=== PATIENT | female | born 1975 | race Caucasian/White ===

== ENCOUNTER → 2018-12-24 | Outpatient (CLI) | payer BC, SELFPAY ==
[2018-12-24 18:02] LABS: ALB/GLOB Ratio 0.9 RATIO (0.9-2.4); AST(SGOT) 14 U/L (15-37); Alanine Aminotransfer ALT/SGPT 21 U/L (13-56); Albumin, Serum 3.6 g/dL (3.2-5.0); Alkaline Phosphatase 55 U/L (45-117); Anion Gap 7 (5-15); BUN 13 mg/dL (7-18); BUN/Creat Ratio 17.4 RATIO (10-20); CRP < 2.90 mg/L (0.0-3.0); Calcium,Total 8.5 mg/dL (8.5-10.1); Chloride 106 mmol/L (98-107); Creatinine, Serum 0.75 mg/dL (0.55-1.02); EST Glomerular Filtration Rate 90 mL/min (>60); Est Glom Filt Rate - Afr Amer 108 mL/min (>60); Glucose 88 mg/dL (74-106); Hemoglobin 11.7 g/dl (12.0-15.0); Mean Corp Hgb Conc 32.5 g/gl (32-36); Mean Corpuscular Hgb 30.1 pg (27.0-32.0); Mean Corpuscular Volume 92.5 fL (81-99); Mean Platelet Vol. 9.5 fl (6.2-12.0); Platelet Count 287 K/mm3 (150-450); Potassium 3.6 mmol/L (3.5-5.1); Protein, Total 7.6 g/dL (6.4-8.2); RBC Distribution Width CV 12.9 % (11.6-14.6); RBC Distribution Width SD 43.3 fl (35.1-43.9); Red Blood Count 3.89 M/mm3 (4.2-5.4); Sodium Level 141 mmol/L (136-145); White Blood Count 9.2 K/mm3 (4.4-11.0)
[2018-12-24 18:03] LABS: Scan Indicated on CBC? Y/N NO
== END | disposition home or self-care (01) ==
PROVIDERS: Family Provider Family Medicine; PCP Family Medicine; Referring Provider Internal Medicine Gastroenterology; Visit Provider Internal Medicine Gastroenterology
DX: K50.90 Crohn's disease, unspecified, without complications (principal)
CPT/HCPCS: 36415; 80053; 85027; 86140

== ENCOUNTER → 2019-02-01 | Outpatient (CLI) | payer BC, SELFPAY ==
--- NOTE | 2019-02-01 13:22 | CT_ITS ---
STUDY: CT ABDOMEN AND PELVIS WITH AND WITHOUT CONTRAST REASON FOR EXAM: Female, 44 years old. Hematuria. Painful urination. RADIATION DOSAGE (If Supplied By Facility): CTDIvol = ( 15.84 ) mGy, DLP = ( 2163.53 ) mGycm TECHNIQUE: Transaxial images were obtained from the dome of the diaphragm to the symphysis pubis without oral contrast. 100 IV Isovue 300 was administered. Sagittal and coronal images were reconstructed. Individualized dose optimization techniques were used for this CT. COMPARISON: None. FINDINGS: The visualized lung bases are unremarkable. The visualized portions of the heart are within normal limits. Normal liver. Normal gallbladder and extrahepatic biliary system. Normal spleen. Normal pancreas. Normal bilateral adrenal glands. There are no urinary calculi. There is no hydronephrosis. There are no focal renal lesions. Normal visualized stomach. Normal small intestine. Normal colon. The appendix is visualized and appears normal. Normal abdominal aorta. Normal inferior vena cava. Normal retroperitoneum. The urinary bladder wall appears thickened. Normal abdominal wall. Normal osseous structures. CT/CT Abd/Pelvis W/WO Contrast IMPRESSION: Thickened urinary bladder wall. Clinical correlation is recommended to evaluate for cystitis. No urinary calculi. No hydronephrosis. No focal renal lesions. Electronically Signed: Jatinder Leach, at 18:54 EDT Tel , Service support ,
== END | disposition home or self-care (01) ==
LOC: CT 13:18
PROVIDERS: Family Provider Family Medicine; PCP Family Medicine; Referring Provider Urology; Visit Provider Urology
DX: R31.9 Hematuria, unspecified (principal)
CPT/HCPCS: 74178; Q9967

== ENCOUNTER 2019-02-22 07:48 | Day surgery (SDC) | payer BC, SELFPAY ==
[2019-02-22] VITALS (7 sets, daily range): BP systolic 103–118; BP diastolic 72–89; PULSE 68–84; RESP 14–18; TEMP 36.6–37.1; O2SAT 98–100; BMI 27.9
[2019-02-22 08:12] LABS: Internal QC Validated? YES +Cl - CLEAR BKGD
[2019-02-22 08:16] LABS: Pregnancy, Urine Negative Negative
--- NOTE | 2019-02-22 09:50 | BLA_PTH ---
PATIENT: EMMANUEL UGARTE [place] [facility] [place][id number] AGE/SX: 44/F ROOM: RE02/22/[address]: Dr. Jorje Dudley MD : 1975 BED: DIS: 02/22/2019 SPEC #: [id number] RECD: 02/22/19 12:22 STATUS: BETINA RE[place] #: [id number] ABDULAZIZ: 02/22/19 09:[address]: Jorje Dudley DEPT: SURGICAL PATHOLOGY RECD BY: Guy Quiñonez ENTERED: 02/22/19 12:41 SP TYPE: BLADDER BX OTHR DR: Dr. Andi Restrepo MD Tissues: A - Urinary bladder, NOS B - Urinary bladder, NOS C - Urinary bladder, NOS Procedures: Surgery Specimen Level IV HEADER OPERATION: Cysto, bladder biopsy, fulguration PRE-OP DIAGNOSIS: Cystitis TISSUE SUBMITTED: A - Bladder biopsy #1, B - Bladder biopsy #2, C - Bladder biopsy #3 MICROSCOPIC DIAGNOSIS A. Urinary bladder biopsy #1: Mild chronic cystitis. See comment. B. Urinary bladder biopsy #2: Mild chronic cystitis. See comment. C. Urinary bladder biopsy #3: Chronic cystitis. See comment. AM:britany 02/25/19 COMMENT A. There is vascular ectasia of the lamina propria. Detrusor muscle is not present. Clinical correlation is suggested. B. Detrusor muscle is not present in the biopsy. C. Detrusor muscle is not present in the biopsy. MICROSCOPIC DESCRIPTION Slides are reviewed. GROSS DESCRIPTION A - Received in fixative is one container labeled with the patient's name and designated bladder biopsy #1. The specimen consists of one irregular fragment of light madera soft tissue that measures 0.2 x 0.1 x 0.1 cm. The specimen is totally submitted in one cassette. B - Received in fixative is one container labeled with the patient's name and designated bladder biopsy #2. The specimen consists of one irregular fragment of light madera soft tissue that measures 0.2 x 0.2 x 0.1 cm. The specimen is totally submitted in one cassette. C - Received in fixative is one container labeled with the patient's name and designated bladder biopsy #3. The specimen consists of one irregular fragment of light madera soft tissue that measures 0.2 x 0.2 x 0.1 cm. The specimen is totally submitted in one cassette. / SJ:rg 02/22/19 TC:3 CPT: 37240 x3
[2019-02-22] MEDS: Cefazolin 2 GM in 0.9% Normal Saline 100 ML IV (10:19)
--- NOTE | 2019-02-22 10:23 | DCINST_ITS ---
Discharge Diet: Light diet - advance as tolerated Discharge Activity: May not drive while taking narcotic pain medications., May Shower Call your doctor if your incision/area has: Sudden Increased Bleeding, Foul Smelling Discharge Call your doctor if you observe: Fever of 101 or Higher, Uncontrolled pain Suture Line Care: Avoid Pulling/Pushing, Avoid Pinching/Bending Instructions: Treating?Interstitial Cystitis: Special Therapies and Surgery, What Is Interstitial Cystitis? Allergies/Adverse Reactions: Allergies No Known Allergies Allergy (Verified 02/20/19 08:03) Medications to take at Discharge Budesonide [Budesonide EC] 3 mg PO MOWEFR 02/20/19 Ciprofloxacin [Cipro] 500 mg PO BID #6 tab 02/22/19 Hydrocodone/Acetaminophen [[facility] 5-325 Tablet] 1 ea PO Q4H PRN PRN 7 Days #20 tab 02/22/19 The following prescriptions were given: Ciprofloxacin [Cipro] 500 mg PO BID #6 tab Prescription Printed Hydrocodone/Acetaminophen [[facility] 5-325 Tablet] 1 ea PO Q4H PRN PRN 7 Days #20 tab PRN Reason: Pain Prescription Printed Primary Care Physician: Andi Restrepo MD [Primary Care Provider] - Test Results: Test results from this visit will be discussed in further detail at your follow- up appointment, if applicable. Please Follow Up With: Jorje Dudley MD When: in 2 weeks, please call to make an appointment.
--- NOTE | 2019-02-22 11:02 | OP.PCM_ITS ---
Report of Operation Date of Procedure: 02/22/19 Pre-Operative Diagnosis: Interstitial cystitis Post-Operative Diagnosis: The same Surgery/Procedure Performed:: Cystoscopy, bladder biopsy x3 and fulguration of 3 sites and some other areas of inflammation within the bladder, hydrodistention of the bladder x2, instillation of IC medication cocktail Description of Surgical Findings:: Indication this is a 44-year-old female she has a history of Crohn's and presented to the office with severe bladder symptoms irritation frequent urination pain discomfort. On cystoscopy she is found to have a very red inflamed friable bladder with very friable mucosa. Because of this I recommended we proceed with a cystoscopy bladder biopsy distention of the bladder and instillation of IC cocktail I suspect she has interstitial cystitis a very severe case that is causing her bladder symptoms. Other possibility would be carcinoma in situ but there is no papillary tumors in the bladder it is reddish inflamed bladder lining. We are going to do a biopsy to rule out carcinoma in situ 44-year-old female was taken back to the operating room at the smooth induction of anesthesia she was placed in dorsolithotomy position the urethra and vaginal area were prepped and draped in usual sterile fashion, went into the bladder with a 21 Telugu rigid cystourethroscope immediately could see the very red and bladder wall, the bladder wall had a lot of erythema and inflammation is also extremely friable and she had extremely sensitive bladder as a started to feel the bladder she started lifting off the table and she required significant amount of anesthesia to get her to stop moving on the table as I told her bladder. Photographs were taken of the bladder and just demonstrated red lesions within the bladder did not appear to be papillary lesions not masses but just inflammation of the bladder wall. My suspicion is that she has a severe case of interstitial cystitis but I did 3 biopsies in the bladder one on the right side 1 of the mid side and when the left side these biopsy sites were then cauterized with a Bugbee electrode I then went through and spot cauterized several areas that were quite red in the bladder but that she had quite a very flat friable and inflamed bladder as a bladder Filling and Emptying More Areas of the Bladder Become Friable and Inflamed and Red in It Which Is Not Feasible to Cauterize the Entire bladder. Therefore the main reddish areas in the bladder were cauterized to 3 biopsy sites were cauterized at the end of the case identified the right and left ureteral orifice to make sure these were not injured, we did a hydrodistention then x2 she really did have very poor filling and low anesthetic bladder volumes around 400 cc. Then at the end of the case after doing a hydrodistention of the biopsies I placed an 816 Telugu catheter into the bladder and we instilled in IC cocktail medication is composed of heparin, lidocaine, DMSO, bicarbonate. After the IC cocktail medication was placed in her bladder anesthesia was reversed we left her bladder with bladder 120 cc of the medication she will be asked to hold it as long as possible in the postoperative setting to help with the medications to help soothe her bladder she will be discharged home on Mal on 100 mg 3 times daily also help with her bladder and interstitial cystitis we will see her back in 2 weeks for checkup she also given a few days of antibiotics and some narcotic pain medication to help with the bladder pain. Type of Anesthesia:: General Specimen's removed: bladder biopsy Drains: none - Complications none - Admit VTE Documentation VTE Present on Admission: No VTE Mechan Device Prophylaxis: SCD's
== END 2019-02-22 13:18 | disposition home or self-care (01) ==
LOC: SDC 07:50 → AC 07:51
PROVIDERS: Anesthesiology; Family Provider Family Medicine; PCP Family Medicine; Referring Provider Urology; Visit Provider Urology
PROC: 0TBB8ZX Excision of Bladder, Via Natural or Artificial Opening Endoscopic, Diagnostic (ICD-10-PCS; CPT 51700; principal; 2019-02-22 09:40)
DX: N30.10 Interstitial cystitis (chronic) without hematuria (principal)
CPT/HCPCS: 51700; 52214; 52260; 81025; 88305; J7120; J1212; J2405

== ENCOUNTER → 2019-03-28 | Outpatient (CLI) | payer BC, SELFPAY ==
[2019-02-22 08:13] VITALS: BMI 27.9
== END | disposition home or self-care (01) ==
PROVIDERS: Family Provider Family Medicine; PCP Family Medicine; Referring Provider Urology; Visit Provider Urology
DX: R30.0 Dysuria (principal)
CPT/HCPCS: 87086

== ENCOUNTER → 2019-05-31 16:02 | Outpatient (CLI) | payer BC, SELFPAY ==
[2019-02-22 08:13] VITALS: BMI 27.9
[2019-05-31 17:50] LABS: Erythrocyte Sedimentation Rate 11 mm/hr (0-20)
[2019-05-31 17:51] LABS: ALB/GLOB Ratio 0.9 RATIO (0.9-2.4); AST(SGOT) 16 U/L (15-37); Absolute Lymphocyte Count 2.09 X10^3/uL (0.83-4.51); Absolute Neutrophil Count 5.3 X10^3/uL (2.0-7.7); Alanine Aminotransfer ALT/SGPT 24 U/L (13-56); Albumin, Serum 3.8 g/dL (3.2-5.0); Alkaline Phosphatase 63 U/L (45-117); Amylase 49 U/L (25-115); Anion Gap 5 (5-15); BUN 13 mg/dL (7-18); BUN/Creat Ratio 16.8 RATIO (10-20); Basophil# 0.03 X10^3/uL; Basophil% 0.4 % (0-1); Chloride 105 mmol/L (98-107); Creatinine, Serum 0.77 mg/dL (0.55-1.02); EST Glomerular Filtration Rate 86 mL/min (>60); Eosinophil# 0.05 X10^3/uL; Eosinophils% 0.6 % (0-5); Est Glom Filt Rate - Afr Amer 104 mL/min (>60); Globulin 4.2 g/dL (2.2-4.2); Glucose 93 mg/dL (74-106); Hematocrit 37.6 % (37-47); Lymphocyte # 2.09 X10^3/ul (4.0); Lymphocyte % 25.6 % (19-41); Mean Corp Hgb Conc 31.9 g/dL (32-36); Mean Corpuscular Hgb 30.7 pg (27.0-32.0); Mean Corpuscular Volume 96.2 fL (81-99); Mean Platelet Vol. 9.6 fl (6.2-12.0); Monocyte# 0.64 X10^3/uL; Monocyte% 7.9 % (0-10); NRBC Flagged by Analyzer 0 % (0-5); Neutrophil # 5.33 X10^3/uL (2.7-7.7); Neutrophil % 65.4 % (47-70); Platelet Count 291 K/mm3 (150-450); Potassium 3.6 mmol/L (3.5-5.1); RBC Distribution Width CV 12.9 % (11.6-14.6); RBC Distribution Width SD 45.7 fl (35.1-43.9); Red Blood Count 3.91 M/mm3 (4.2-5.4); Sodium Level 139 mmol/L (136-145); White Blood Count 8.2 K/mm3 (4.4-11.0)
== END ==
PROVIDERS: Family Provider Family Medicine; PCP Family Medicine; Referring Provider Internal Medicine Gastroenterology; Visit Provider Internal Medicine Gastroenterology
DX: R10.84 Generalized abdominal pain (principal)
CPT/HCPCS: 36415; 80053; 82150; 85025; 85652

== ENCOUNTER 2020-03-26 05:56 | Day surgery (SDC) | payer BC, SELFPAY ==
[2019-02-22 08:13] VITALS: BMI 27.9
[2020-03-26] VITALS (12 sets, daily range): BP systolic 96–138; BP diastolic 63–103; PULSE 70–89; RESP 16–24; TEMP 36.7–37.7; O2SAT 94–100; BMI 32.8
[2020-03-26 06:35] LABS: Internal QC Validated? YES +Cl - CLEAR BKGD; Pregnancy, Urine Negative Negative
[2020-03-26] MEDS: Lactated Ringers 1,000 ML 100 ML IV ×2 (06:52→09:03)
[2020-03-26] MEDS: Cefazolin 2 GM in 0.9% Normal Saline 100 ML IV (07:24)
--- NOTE | 2020-03-26 07:28 | PCM.OPRPT ---
Problem List (1) Interstitial cystitis Status: Chronic (2) Hunner's ulcer Status: Acute Report of Operation Date of Procedure: 03/26/20 Pre-Operative Diagnosis: interstitial cystitis with Hunner's Ulcers Post-Operative Diagnosis: same Surgery/Procedure Performed:: cystoscopy, bladder biopsy and fulguration Type of Anesthesia:: MAC Specimen's removed: bladder biopsy x 3 Description of Procedure: The patient is a 45-year-old female with symptoms of interstitial cystitis that underwent a cystoscopy in the office last week and identified at least 7 areas of ulceration. Informed consent was obtained to proceed with surgical intervention. This included a discussion of COVID and the risks secondary to it. The patient was taken to the operating room and placed on the operating room table. Anesthesia monitored the head, neck, airway, IV access and vital signs throughout the case. Once anesthesia was appropriately administered, the patient was placed into dorsal lithotomy position was prepped and draped in usual sterile fashion. A cystourethroscopy through the urethra was performed. Upon entry into the urinary bladder, the ulcerative areas were actively oozing. Specifically one on the patient's left lateral bladder wall, right posterior bladder wall and midline posterior bladder wall. 3 biopsies were taken. These were difficult and small biopsy secondary to the inflammation of the mucosa. The areas of biopsy were fulgurated for hemostatic control and tissue treatment. The other areas of ulceration and oozing were fulgurated as well. At the conclusion of the case, the bladder was very irritated but there were no remaining ulcerations. The patient's bladder was emptied, she was awakened and taken to the recovery room in good condition. There were no complications during the procedure. Grafts/Implants Used: none - Complications none - Admit VTE Documentation VTE Present on Admission: Yes VTE Mechan Device Prophylaxis: SCD's VTE Pharm Prophylaxis ordered?: No Reason prophylaxis not ordered:: Treatment Not Indicated
--- NOTE | 2020-03-26 07:30 | BLA_PTH ---
PATIENT: EMMANUEL UGARTE LOC: [facility] – [place] U#:[id number] AGE/SX: 45/F ROOM: RE03/26/[address]: Dr. Liz Mendes MD : 1975 BED: DIS: 03/26/2020 SPEC #: [id number] RECD: 03/26/20 08:43 STATUS: BETINA CASEY #: [id number] ABDULAZIZ: 03/26/20 07:[address]: Liz Mendes DEPT: SURGICAL PATHOLOGY RECD BY: Collette Skinner ENTERED: 03/26/20 09:50 SP TYPE: BLADDER BX OTHR DR: Dr. Andi Restrepo MD Tissues: Urinary bladder, NOS Procedures: Surgery Specimen Level IV HEADER OPERATION: Cystoscopy, bladder biopsy with fulguration PRE-OP DIAGNOSIS: Interstitial cystic chronic without hematuria; urgency of urination; frequent micturition; nocturia, dysuria, dyspareunia, pelvic and perineal pain TISSUE SUBMITTED: Bladder biopsy Hunner's ulcer MICROSCOPIC DIAGNOSIS Bladder, Hunner's ulcer, biopsy: Fragments of benign mucosal tissue with acute and chronic inflammation and granulation tissue reaction. See comment. [place] 03/27/20 COMMENT Epithelium is completely denuded. Please make reference to previous specimen ([id number]) urinary bladder biopsies, 1-3, with diagnosis of chronic cystitis. MICROSCOPIC DESCRIPTION Slides are reviewed. GROSS DESCRIPTION Received in fixative is one container labeled with the patient's name and designated bladder biopsy Hunner's ulcer. The specimen consists of three irregular fragments of madera soft tissue that in aggregate measure 0.4 x 0.1 x 0.1 cm. The specimen is totally submitted in one cassette. / RADHA:britany 03/26/20 TC:2 CPT: 87528
--- NOTE | 2020-03-26 07:31 | PCM.DC.URO ---
Discharge Diet: No Restrictions Discharge Activity: Return to Normal Activity, May not drive while taking narcotic pain medications. May resume sexual activity in: 1 week Call your doctor if you observe: Fever of 101 or Higher, Inability to urinate, Inability to have a bowel movement, Calf discomfort, Uncontrolled pain Allergies/Adverse Reactions: Allergies doxycycline Allergy (Verified 03/26/20 06:16) Nausea SEVERE HEADACHE, HIGH BP hyoscyamine [From Urogesic-Blue] Allergy (Verified 03/26/20 06:16) Shortness of breath ALSO HEADACHE, RUNNY NOSE, EXTREME TIREDNESS methenamine [From Urogesic-Blue] Allergy (Verified 03/26/20 06:16) Shortness of breath ALSO HEADACHE, RUNNY NOSE, EXTREME TIREDNESS methylene blue [From Urogesic-Blue] Allergy (Verified 03/26/20 06:16) Shortness of breath ALSO HEADACHE, RUNNY NOSE, EXTREME TIREDNESS sodium phosphate [From Urogesic-Blue] Allergy (Verified 03/26/20 06:16) Shortness of breath ALSO HEADACHE, RUNNY NOSE, EXTREME TIREDNESS Medications to take at Discharge Mesalamine [Pentasa] 500 mg PO BID 03/09/20 Mirabegron [Myrbetriq] 50 mg PO DAILY 03/09/20 Naproxen Sodium [Aleve] 220 mg PO PRN PRN 03/09/20 Cephalexin [Keflex] 500 mg PO Q12 3 Days #6 cap 03/26/20 Oxycodone HCl/Acetaminophen [Percocet 5/325] 2 tablet PO Q8H PRN PRN 7 Days #20 tablet 03/26/20 The following prescriptions were given: Cephalexin [Keflex] 500 mg PO Q12 3 Days #6 cap Transmission Status: Pending to [address] Oxycodone HCl/Acetaminophen [Percocet 5/325] 2 tablet PO Q8H PRN PRN 7 Days #20 tablet PRN Reason: Pain Transmission Status: Received by [address] Primary Care Physician: Andi Restrepo MD [Primary Care Provider] - Test Results: Test results from this visit will be discussed in further detail at your follow-up appointment, if applicable. Please Follow Up With: Liz Mendes MD When: in 2-3 weeks call for appt Proposed Discharge Date: 03/26/20
[2020-03-26] MEDS: Ketorolac 30 MG/ML Syringe IV (08:38)
[2020-03-26] MEDS: Lidocaine Jelly 2% 20 ML Syringe (URO-JET) 20 APPLIC TOPICAL ×2 (08:38→09:33)
== END 2020-03-26 10:40 | disposition home or self-care (01) ==
LOC: SDC 05:57 → AC 05:58
PROVIDERS: Anesthesiology; PCP Family Medicine; Referring Provider Urology; Visit Provider Urology
PROC: 0TBB8ZX Excision of Bladder, Via Natural or Artificial Opening Endoscopic, Diagnostic (ICD-10-PCS; CPT 52204; principal; 2020-03-26 07:20)
DX: N30.10 Interstitial cystitis (chronic) without hematuria (principal); Z11.59 Encounter for screening for other viral diseases; Z86.2 Personal history of diseases of the blood and blood-forming organs and certain disorders involving the immune mechanism; Z87.440 Personal history of urinary (tract) infections
CPT/HCPCS: 00910; 52204; 81025; 87635; 88305; 94799; J7120; J2405; U0003

== ENCOUNTER → 2021-01-29 09:10 | Outpatient (CLI) | payer BC, SELFPAY ==
[2020-03-26 06:40] VITALS: BMI 32.8
[2021-01-29 10:24] LABS: Erythrocyte Sedimentation Rate 24 mm/hr (0-30)
[2021-01-29 10:27] LABS: Absolute Lymphocyte Count 2.04 X10^3/uL (0.83-4.51); Basophil# 0.04 X10^3/uL; Basophil% 0.5 % (0-1); Eosinophil# 0.07 X10^3/uL; Eosinophils% 0.9 % (0-5); Hematocrit 36.6 % (37-47); Hemoglobin 11.9 g/dL (12.0-15.0); Lymphocyte # 2.04 X10^3/ul (0.83-4.51); Lymphocyte % 26.4 % (19-41); Mean Corp Hgb Conc 32.5 g/dL (32-36); Mean Corpuscular Hgb 30.6 pg (27.0-32.0); Mean Corpuscular Volume 94.1 fL (81-99); Mean Platelet Vol. 9.7 fl (6.2-12.0); Monocyte# 0.56 X10^3/uL; Monocyte% 7.3 % (0-10); NRBC Flagged by Analyzer 0 % (0-5); Neutrophil # 4.98 X10^3/uL (2.7-7.7); Neutrophil % 64.5 % (47-70); Platelet Count 273 K/mm3 (150-450); RBC Distribution Width CV 12.9 % (11.6-14.6); RBC Distribution Width SD 44.1 fl (35.1-43.9); Red Blood Count 3.89 M/mm3 (4.2-5.4); White Blood Count 7.7 K/mm3 (4.4-11.0)
[2021-01-29 10:52] LABS: ALB/GLOB Ratio 0.9 RATIO (0.9-2.4); AST(SGOT) 20 U/L (15-37); Alanine Aminotransfer ALT/SGPT 30 U/L (13-56); Albumin, Serum 3.7 g/dL (3.2-5.0); Alkaline Phosphatase 62 U/L (45-117); Anion Gap 7 (5-15); BUN 14 mg/dL (7-18); BUN/Creat Ratio 17.1 RATIO (10-20); Bilirubin, Direct 0.14 mg/dL (0.00-0.30); Calcium,Total 9.1 mg/dL (8.5-10.1); Chloride 107 mmol/L (98-107); Creatinine, Serum 0.82 mg/dL (0.55-1.02); EST Glomerular Filtration Rate 80 mL/min (>60); Est Glom Filt Rate - Afr Amer 97 mL/min (>60); Glucose 95 mg/dL (74-106); Protein, Total 7.7 g/dL (6.4-8.2); Sodium Level 140 mmol/L (136-145)
== END ==
PROVIDERS: PCP Family Medicine; Referring Provider Internal Medicine Gastroenterology; Visit Provider Internal Medicine Gastroenterology
DX: K50.90 Crohn's disease, unspecified, without complications (principal)
CPT/HCPCS: 36415; 80053; 82248; 85025; 85652